=== PATIENT | male | born 1975 | race Caucasian/White ===

== ENCOUNTER → 2020-11-12 11:43 | Outpatient (CLI) | payer OTHER, SELFPAY ==
[2020-11-12 23:00] LABS: SARS-CoV-2 RNA PCR Positive
== END ==
PROVIDERS: PCP Family Medicine; Visit Provider Family Medicine
DX: U07.1 COVID-19 (principal); R09.89 Other specified symptoms and signs involving the circulatory and respiratory systems
CPT/HCPCS: C9803; U0003; U0005

== ENCOUNTER 2023-03-07 10:10 | Outpatient (CLI) | payer OTHER, SELFPAY ==
[2023-03-07 19:49] LABS: Hemoglobin 16.4 g/dL (14.0-18.0); Mean Corpuscular HGB Conc 34.2 g/dl (32-36); Mean Corpuscular Hemoglobin 31.2 pg (26-34); Mean Corpuscular Volume 91.3 fl (80-100); Mean Platelet Volume 10.6 fl (7.4-10.4); Platelet Count Result 202 k/mm3 (150-375); Red Blood Count 5.26 M/mm3 (4.6-6.20); Red Cell Distribution Width 12.6 % (11.5-14.5); White Blood Count 5.7 K/mm3 (4.5-10.0)
[2023-03-07 21:05] LABS: Potassium 3.8 mmol/L (3.4-5.0)
[2023-03-07 21:08] LABS: Alanine Aminotransferase 37 U/L (6-50); Albumin Level 4.7 g/dL (3.5-5.1); Alkaline Phosphatase 39 U/L (38-126); Anion Gap 9 mmol/L (8-16); Aspartate Amino Transferase 40 U/L (17-59); Bilirubin,Total 0.8 mg/dL (0.2-1.3); Blood Urea Nitrogen 16 mg/dL (9-20); Calcium 9.3 mg/dL (8.4-10.2); Carbon Dioxide 30 mmol/L (22-30); Chloride 100 mmol/L (98-107); Cholesterol 209 mg/dL (0-200); Estimated Glomerular Filt Rate > 60; Glucose 82 mg/dL (65-110); HDL Direct 39 mg/dL; Sodium 139 mmol/L (137-145); Triglycerides 341 mg/dL (<150); Uric Acid 5.4 mg/dL (3.5-8.5)
[2023-03-07 21:16] LABS: LDL Cholesterol Direct 89 mg/dL
[2023-03-07 21:35] LABS: Thyroid Stimulating Hormone 0.761 uIU/mL (0.465-4.680)
[2023-03-09 22:45] LABS: PSA, Free 0.19 ng/mL; PSA, Total 0.9 ng/mL (<=4.0)
== END 2023-03-07 10:11 | disposition home or self-care (01) ==
LOC: ANHGOSHLAB 10:12
PROVIDERS: PCP Family Medicine; Visit Provider Nurse Practitioner Family
DX: Z00.00 Encounter for general adult medical examination without abnormal findings (principal); R35.1 Nocturia; M25.521 Pain in right elbow
CPT/HCPCS: 36415; 80053; 80061; 84153; 84154; 84443; 84550; 85027

== ENCOUNTER 2023-03-07 10:47 | Outpatient (CLI) | payer OTHER, SELFPAY ==
--- NOTE | ~2023-03-07 | XR_ITS ---
XR elbow RT 2V DATE: 03/07/2023 11:05 INDICATION: Right elbow pain TECHNIQUE: AP and lateral views COMPARISON: None FINDINGS: Very small dorsal olecranon process spur. No fracture or dislocation or joint effusion. No periosteal reaction or bone destruction. IMPRESSION: Very small dorsal olecranon process spur Reviewed, dictated and finalized at location B.
== END 2023-03-07 10:48 ==
LOC: MICIMG 10:51
PROVIDERS: PCP Family Medicine; Visit Provider Nurse Practitioner Family
DX: M25.521 Pain in right elbow (principal)
CPT/HCPCS: 73070

== ENCOUNTER 2024-07-23 12:44 | Outpatient (CLI) | payer OTHER, SELFPAY ==
--- NOTE | ~2024-07-23 | MR_ITS ---
MRI of the lumbar spine Clinical History: Back pain Technique: Axial T2-weighted images, and sagittal T1-weighted, T2-weighted, and T2 fat-sat images wer e acquired. Following intravenous administration of 15 cc MultiHance gadolinium, T1-weighted fat-sat imaging was performed in the axial and sagittal planes. COMPARISON: 05/05/2016 Findings: There is no fracture or subluxation of the lumbar spine. Vertebral bodies maintain normal h eight and alignment. No suspicious bone marrow signal abnormality seen. At L1-L2, there is a somewhat bilobed mass passing through and widening the right neural foramen, T2 hyperintense, T1 hypointense, with postcontrast enhancement. Lesion measures approximately 4.3 x 2.1 x 2.7 cm in size. Lesion is similar morphology to prior exam, though mildly progressed in size. There is a second similar lesion along the right diaphragmatic gil at the same level, measuring 2.2 x 1.5 cm in size, also mildly progressed in size from prior exam but otherwise similar. There is no disc bulge or herniation at L1-L2. No spinal canal stenosis. Left neural foramen preserve d. At L2-L3, there is no disc bulge or herniation. There is mild facet arthropathy. No central canal aj nosis or neural foraminal narrowing. At L3-L4, there is moderate degenerative disc narrowing. There is mild diffuse disc bulge and moderat e facet arthropathy. No central canal stenosis. There is moderate left neural foraminal narrowing. Ri ght neural foramen preserved. At L4-L5, there is moderate to advanced degenerative disc narrowing. There is diffuse disc bulge with advanced facet arthropathy. No central canal stenosis. There is moderate to advanced left neural for aminal narrowing, and mild right neural foraminal narrowing. At L5-S1, there is disc bulge most prominent at the left paracentral region. There is advanced facet arthropathy. No central canal stenosis. There is moderate to advanced left neural foraminal narrowing . There is mild right neural foraminal narrowing. Paravertebral soft tissues otherwise are unremarkable. Impression: 4.3 x 2.1 x 2.7 cm bilobed mass extending through the right L1-L2 neural foramen, mildly increased in size from prior exam. Second similar appearing lesion present the same level along the right diaphra gmatic gil measuring 2.2 x 1.5 cm, also mildly increased from prior exam. Findings are compatible sc hwannomas or neurofibromas. Mild degenerative spondylosis otherwise in the lumbar spine, as above. Reviewed, dictated and finalized at location M. [employer]ER Impression: 4.3 x 2.1 x 2.7 cm bilobed mass extending through the right L1-L2 neural forame n, mildly increased in size from prior exam. Second similar appearing lesion pr esent the same level along the right diaphragmatic gil measuring 2.2 x 1.5 cm, also mildly increased from prior exam. 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 Mild degenerative spondylosis otherwise in the lumbar spine, as above.
== END 2024-07-23 12:45 | disposition home or self-care (01) ==
PROVIDERS: PCP Nurse Practitioner Family; Visit Provider Nurse Practitioner Family
DX: R22.2 Localized swelling, mass and lump, trunk (principal); M47.816 Spondylosis without myelopathy or radiculopathy, lumbar region
CPT/HCPCS: 72158; A9577

== ENCOUNTER 2025-03-22 09:04 | Outpatient (CLI) | payer OTHER, SELFPAY ==
--- OUTSIDE RECORDS SUMMARY | 2025-03-22 09:10 | XMS_ITS | Clinical Summary ---
Author Organization [facility] Address [address] [place] [id number] Care Team Providers Care Hand Cloth Examiner Name Role Phone Opal Santillan MD Primary Care Provider [phone] Social History Tobacco Use Types Packs/Day Years Used Date Smoking Tobacco: Never Assessed Sex and Gender Information Value Date Recorded Sex Assigned at Not on file Legal Sex Male 9:04 PM CDT Gender Identity Not on file Sexual Orientation Not on file Last Filed Vital Signs Vital Sign Reading Time Taken Comments Blood Pressure 124/76 07/05/2016 4:13 PM [employer]OUNTS PAYABLE MANAGER Pulse 68 07/05/2016 4:13 PM ACCOUNTS PAYABLE MANAGER Temperature - - Respiratory Rate - - Oxygen Saturation - - Inhaled Oxygen Concentration - - Weight 97.2 kg (214 lb 4 oz) 07/05/2016 4:13 PM ACCOUNTS PAYABLE MANAGER Height 177.8 cm (5' 10) 07/05/2016 4:13 PM ACCOUNTS PAYABLE MANAGER Body Mass Index 30.74 07/05/2016 4:13 PM ACCOUNTS PAYABLE MANAGER Plan of Treatment Health Maintenance Due Date Last Done Comments Colorectal Cancer Screening Colonoscopy (10 Years) 1974 Annual Physical 1977 Hepatitis C 1992 DTaP, Tdap and Td Vaccines ( 1 - Tdap) 1993 Hepatitis B Vaccines (1 of 3 - 19+ 3-dose series) 1993 COVID-19 Vaccine ( - 2023-2 5 season) 2024 Pneumococcal Vaccine: 50+ Ye ars (1 of 1 - PCV) 2024 Zoster Vaccines (1 of 2) 2024 Meningococcal B Vaccine Aged Out No l onger eligible based on patient's age to complete this topic Meningococcal Vaccine Aged Out No yadi ricci eligible based on patient's age to complete this topic RSV Immunizations Under 20 Months Aged Out No longer eligible based on patient's age to complete this topic Insurance [employer] Care Teams Hand Cloth Examiner Relationship Specialty Start Date End Date Opal Santillan MD [address] [place] [address] PCP - General FAMILY PRACTICE 08/30/19
[2025-03-22 13:07] LABS: Hematocrit 45.8 % (42.0-52.0); Hemoglobin 15.2 g/dL (14.0-18.0); Immature Granulocyte Percent A 0.2 % (0-0.5); Lymphocytes Absolute Auto 1.44 K/mm3 (0.9-3.2); Mean Corpuscular HGB Conc 33.2 g/dl (32-36); Mean Corpuscular Hemoglobin 29.9 pg (26-34); Mean Corpuscular Volume 90.0 fl (80-100); Nucleated Red Blood Cells Absolute Auto 0.000 K/mm3 (0.0-0.012); Nucleated Red Blood Cells Perc 0.0 % (0.0-0.2); Platelet Count Result 208 k/mm3 (150-375); Red Blood Count 5.09 M/mm3 (4.6-6.20); White Blood Count 5.0 K/mm3 (4.5-10.0)
[2025-03-22 13:33] LABS: Alanine Aminotransferase 46 U/L (6-50); Albumin Level 4.4 g/dL (3.5-5.1); Alkaline Phosphatase 36 U/L (38-126); Anion Gap 9 mmol/L (4-12); Aspartate Amino Transferase 59 U/L (17-59); Bilirubin,Total 0.5 mg/dL (0.2-1.3); Blood Urea Nitrogen 27 mg/dL (9-20); Calcium 9.5 mg/dL (8.4-10.2); Carbon Dioxide 27 mmol/L (22-30); Chloride 104 mmol/L (98-107); Cholesterol 244 mg/dL (0-200); Estimated Glomerular Filt Rate > 60; Glucose 103 mg/dL (65-110); HDL Direct 45 mg/dL; Potassium 4.6 mmol/L (3.4-5.0); Sodium 140 mmol/L (137-145); Total Protein 7.5 g/dL (6.3-8.2); Triglycerides 97 mg/dL (<150)
[2025-03-22 14:02] LABS: Prostate Specific Antigen 0.9 ng/mL (< OR = 4.0)
[2025-03-22 15:24] LABS: Thyroid Stimulating Hormone Reflex 1.830 uIU/mL (0.465-4.68)
== END 2025-03-22 09:05 | disposition home or self-care (01) ==
LOC: ANHGOSHLAB 09:05
PROVIDERS: PCP Nurse Practitioner Family; Visit Provider Nurse Practitioner Family
DX: Z12.5 Encounter for screening for malignant neoplasm of prostate (principal); Z13.29 Encounter for screening for other suspected endocrine disorder; E78.5 Hyperlipidemia, unspecified; E55.9 Vitamin D deficiency, unspecified; E78.2 Mixed hyperlipidemia
CPT/HCPCS: 36415; 80053; 80061; 82306; 84153; 84443; 85025; G0103